=== PATIENT | female | born 1985 | race Caucasian/White ===

== ENCOUNTER 2017-11-15 12:43 | Emergency (ER) | payer OTHER, SELFPAY ==
[2017-11-15 12:52] VITALS: BP 136/90; PULSE 99; RESP 20; TEMP 36.6; O2SAT 99; BMI 28.3
--- NOTE | 2017-11-15 13:12 | HMH.EDUTC ---
[facility] [place] Disposition Clinical Impression: Right sided sciatica Disposition: Home, Self-Care Condition on Discharge: Good Additional Instructions: Stretching. Ice. Prescriptions: Cyclobenzaprine HCl [Cyclobenzaprine 10mg Tab] 10 mg PO QPMWM 10 Days #10 tab methylPREDNISolone [Medrol] 4 mg PO DIRECTED 6 Days #1 tab.ds.pk Forms: Work/School Release Time of Disposition: 13:18 Medical Decision Making - Ryder Inquiry Pt receiving controlled substance: No Vital Signs: 11/15/17 12:52 Temperature 97.8 F Temperature Source Temporal Artery Scan Pulse Rate [Brachial] 99 H Respiratory Rate 20 Blood Pressure [Right Arm] 136/90 Blood Pressure Mean [Right Arm] 105 Blood Pressure Position [Right Arm] Sitting 02 Sat by Pulse Oximetry 99 [facility] [place] HPI - General Stated complaint: Pain in lower back Time Seen by Provider: 11/15/17 12:50 Mode of Arrival: Ambulatory Source of Information: Patient Limitations: No Limitations Description of Symptoms (Recalled from Triage Doc. by RN): LOWER RT SIDE BACK PAIN THAT BEGAN AT WORK YESTERDAY. DESCRIBES IT BURNING. HEENT Symptoms (Recalled from RN notes): No Resp Symptoms (Recalled from RN notes): No Skin Symptoms (Recalled from RN notes): No MS Symptoms (Recalled from RN notes): Yes Functional Status (Recalled from RN notes): NA - History of Present Illness Provider Complaint: Patient has right lower back pain since yesterday afternoon at work. Pain radiates into her right buttock. She cannot find a comfortable position. She does not recall any injury. Pain is burning. Does not extend further than her buttock. No numbness. No bowel or bladder incontinence. Onset (ago): day(s) (1) Location: back Radiation: back Quality: burning Consistency: constant Relieving factors: immobilization Exacerbating factors: movement Associated symptoms: denies other symptoms Treatments prior to arrival: NSAID - Related Data Previous Rx's Medication Instructions Recorded Cyclobenzaprine HCl 10 mg PO QPMWM 10 Days #10 tab 11/15/17 [Cyclobenzaprine 10mg Tab] methylPREDNISolone [Medrol] 4 mg PO DIRECTED 6 Days #1 11/15/17 tab.ds.pk Allergies Allergy/AdvReac Type Severity Reaction Status Date / Time No Known Drug Allergies Allergy Unknown Verified 11/15/17 12:54 [NKDA] - Worker's Comp Is this a Worker's Comp case?: No [facility] History I have reviewed the patient's past medical history: Yes - Social History Smoking Status: Current every day smoker Tobacco Type: cigarettes Alcohol Intake: never - Psychiatric History Expresses thoughts of harming self/others: None Suicide Plan Description: No Plan ROS Obtained: Yes All systems reviewed & no additional complaints - Musculoskeletal Musculoskeletal: Reports back pain, Reports numbness, Reports stiffness, Reports tingling Physical Exam - General General appearance: alert, in no apparent distress - Head Head exam: atraumatic, normocephalic - Eye Eye exam: Present: normal appearance - Chest Chest inspection: Present: normal inspection - Respiratory Respiratory exam: Present: normal lung sounds bilaterally, respiratory distress - Cardiovascular Cardiovascular exam: Present: regular rate, normal rhythm - Extremities Exam Extremities exam: Present: normal inspection, full ROM - Back Exam Back exam: Present: normal inspection, sciatic notch tenderness (R). Absent: vertebral tenderness - Neurological Exam Neurological exam: Present: alert, oriented X3 - Psychiatric Psychiatric exam: Present: normal affect, normal mood - Skin Skin exam: Present: warm, dry, intact
--- NOTE | 2017-11-15 13:15 | ED_ITS ---
[facility] [place] Disposition Clinical Impression: Right sided sciatica Disposition: Home, Self-Care Condition on Discharge: Good Additional Instructions: Stretching. Ice. Prescriptions: Cyclobenzaprine HCl [Cyclobenzaprine 10mg Tab] 10 mg PO QPMWM 10 Days #10 tab methylPREDNISolone [Medrol] 4 mg PO DIRECTED 6 Days #1 tab.ds.pk Forms: Work/School Release Time of Disposition: 13:18 Medical Decision Making - Ryder Inquiry Pt receiving controlled substance: No Vital Signs: 11/15/17 12:52 Temperature 97.8 F Temperature Source Temporal Artery Scan Pulse Rate [Brachial] 99 H Respiratory Rate 20 Blood Pressure [Right Arm] 136/90 Blood Pressure Mean [Right Arm] 105 Blood Pressure Position [Right Arm] Sitting 02 Sat by Pulse Oximetry 99 [facility] [place] HPI - General Stated complaint: Pain in lower back Time Seen by Provider: 11/15/17 12:50 Mode of Arrival: Ambulatory Source of Information: Patient Limitations: No Limitations Description of Symptoms (Recalled from Triage Doc. by RN): LOWER RT SIDE BACK PAIN THAT BEGAN AT WORK YESTERDAY. DESCRIBES IT BURNING. HEENT Symptoms (Recalled from RN notes): No Resp Symptoms (Recalled from RN notes): No Skin Symptoms (Recalled from RN notes): No MS Symptoms (Recalled from RN notes): Yes Functional Status (Recalled from RN notes): NA - History of Present Illness Provider Complaint: Patient has right lower back pain since yesterday afternoon at work. Pain radiates into her right buttock. She cannot find a comfortable position. She does not recall any injury. Pain is burning. Does not extend further than her buttock. No numbness. No bowel or bladder incontinence. Onset (ago): day(s) (1) Location: back Radiation: back Quality: burning Consistency: constant Relieving factors: immobilization Exacerbating factors: movement Associated symptoms: denies other symptoms Treatments prior to arrival: NSAID - Related Data Previous Rx's Medication Instructions Recorded Cyclobenzaprine HCl 10 mg PO QPMWM 10 Days #10 tab 11/15/17 [Cyclobenzaprine 10mg Tab] methylPREDNISolone [Medrol] 4 mg PO DIRECTED 6 Days #1 11/15/17 tab.ds.pk Allergies Allergy/AdvReac Type Severity Reaction Status Date / Time No Known Drug Allergies Allergy Unknown Verified 11/15/17 12:54 [NKDA] - Worker's Comp Is this a Worker's Comp case?: No [facility] History I have reviewed the patient's past medical history: Yes - Social History Smoking Status: Current every day smoker Tobacco Type: cigarettes Alcohol Intake: never - Psychiatric History Expresses thoughts of harming self/others: None Suicide Plan Description: No Plan ROS Obtained: Yes All systems reviewed & no additional complaints - Musculoskeletal Musculoskeletal: Reports back pain, Reports numbness, Reports stiffness, Reports tingling Physical Exam - General General appearance: alert, in no apparent distress - Head Head exam: atraumatic, normocephalic - Eye Eye exam: Present: normal appearance - Chest Chest inspection: Present: normal inspection - Respiratory Respiratory exam: Present: normal lung sounds bilaterally, respiratory distress - Cardiovascular Cardiovascular exam: Present: regular rate, normal rhythm - Extremities Exam Extremities exam: Present: normal i
[2017-11-15 13:23] VITALS: BP 136/90; PULSE 99; RESP 20; TEMP 36.6; O2SAT 99
== END 2017-11-15 13:25 | disposition home or self-care (01) ==
PROVIDERS: Emergency Provider Physician Assistant
DX: M54.31 Sciatica, right side (principal)
CPT/HCPCS: 99201

== ENCOUNTER 2024-10-06 14:37 | Emergency (ER) | payer BC, SELFPAY ==
[2024-10-06 15:01] VITALS: BP 165/100; PULSE 79; RESP 18; TEMP 36.6; O2SAT 99; BMI 31.4
--- NOTE | 2024-10-06 15:30 | XR_ITS ---
PROCEDURE INFORMATION: Exam: XR Left Hip Exam date and time: 10/06/2024 3:45 PM Age: 39 years old Clinical indication: Hip pain; Left hip; Additional info: Fall on ice, knee pain TECHNIQUE: Imaging protocol: Radiologic exam of the left hip. Views: 2 or 3 views hip with pelvis when performed. COMPARISON: ABDPELWO CT abdomen pelvis wo con 03/20/2018 10:14 PM FINDINGS: Bones/joints: Unremarkable. No acute fracture. Soft tissues: Unremarkable. IMPRESSION: No acute findings.
--- NOTE | 2024-10-06 15:30 | XR_ITS ---
PROCEDURE INFORMATION: Exam: XR Left Femur Exam date and time: 10/06/2024 3:42 PM Age: 39 years old Clinical indication: Pain; Thigh; Left; Additional info: Fall on ice, knee pain TECHNIQUE: Imaging protocol: Radiologic exam of the left femur. Views: 2 views. COMPARISON: CR XR KNEE LT 3V 10/06/2024 3:40 PM FINDINGS: Bones/joints: Unremarkable. No acute fracture. Soft tissues: Unremarkable. IMPRESSION: No acute findings.
--- NOTE | 2024-10-06 15:30 | XR_ITS ---
PROCEDURE INFORMATION: Exam: XR Left Tibia and Fibula Exam date and time: 10/06/2024 3:43 PM Age: 39 years old Clinical indication: Pain; Lower leg; Left; Additional info: Fall on ice, knee pain TECHNIQUE: Imaging protocol: Radiologic exam of the left tibia and fibula. Views: 2 views. COMPARISON: CR XR KNEE LT 3V 10/06/2024 3:40 PM FINDINGS: Bones/joints: Normal. Soft tissues: Normal. IMPRESSION: No acute findings.
--- NOTE | 2024-10-06 15:30 | XR_ITS ---
PROCEDURE INFORMATION: Exam: XR Left Knee Exam date and time: 10/06/2024 3:40 PM Age: 39 years old Clinical indication: Pain; Knee; Left; Additional info: Fall on ice, knee pain TECHNIQUE: Imaging protocol: Radiologic exam of the left knee. Views: 3 views. COMPARISON: CR Knee L 01/13/2019 11:04 PM FINDINGS: Bones/joints: No acute fracture. Soft tissues: Prepatellar soft tissue swelling. IMPRESSION: 1. No evidence for acute fracture. 2. Prepatellar soft tissue swelling.
--- NOTE | 2024-10-06 15:31 | HMH.EDGENADL ---
Discharge Plan Disposition Patient Disposition: Home, Self-Care Condition: Good Prescriptions Prescriptions: New methocarbamol 750 mg tablet 750 mg PO Q8H PRN (Reason: pain) Qty: 20 0RF ondansetron 4 mg tablet,disintegrating 4 mg PO Q8H PRN (Reason: nausea and vomiting) 4 Days Qty: 12 0RF No Action prednisone 20 MG tablet 20 mg PO BID Qty: 10 0RF Referrals Follow up/Referrals: Juan Pratt DO [Staff Physician] - See instructions Michael Harvey MD [Primary Care Provider] - See instructions Activity Restrictions/Add. Instructions Additional Instructions/Restrictions: You were evaluated in the emergency department today. At this time, I do not see any acute fractures on your x-ray. Please follow-up closely with orthopedics for reassessment. Please orange picker your prescriptions and take them as needed for symptoms. Also take Tylenol and ibuprofen every 4-6 hours as needed for pain. Keep your leg elevated. Ice to reduce pain and swelling. Expect that the bruising may spread and extend down your leg as gravity pulls the blood downward. Return to the emergency department for new or worsening symptoms. Clinical Impressions Clinical Impression: Nausea, Knee pain, left, Hemarthrosis of knee, left Stand Alone Forms Stand Alone Forms: Work/School Release Instructions Patient Instructions: DI for Nausea -- Adult, DI for Knee Effusion, DI for Knee Pain Print Language Print Language: Cook Islander Discharge ED Provider: Kala Pearce General Adult HPI General Chief complaint: Fall Stated complaint: AO-10/05 am- fall, pain, swelling to L knee Time Seen by Provider: 10/06/24 15:06 Mode of Arrival: Ambulatory Source of Information: Patient Limitations: No Limitations Description of Symptoms (Recalled from ER Triage Doc. by RN): FELL ON ICE ON LEFT KNEE, SEVERE BRUISING/PAIN History of Present Illness HPI narrative: This patient is a 39-year-old female who denies significant past medical history presenting to the emergency department for evaluation with concern for left knee pain. Patient fell yesterday morning on ice, landing directly on her left knee. She felt immediate pain. She has had progressively worsening swelling and bruising to her left knee since then. She can still walk but has some pain in the left knee and left hip with ambulation. No head injury or loss of consciousness. She does not take blood thinners or aspirin. Of note, she also states that overnight she started feeling very nauseated and having epigastric discomfort. She feels like she needs to vomit but is unable to. No other concerns noted at this time. Related Data Previous Rx's ?Medication ?Instructions ?Recorded prednisone 20 mg tablet 20 mg PO BID #10 tabs 01/13/19 methocarbamol 750 mg tablet 750 mg PO Q8H PRN pain #20 tabs 10/06/24 ondansetron 4 mg disintegrating 4 mg PO Q8H PRN nausea and 10/06/24 tablet vomiting 4 days #12 tabs Allergies Allergy/AdvReac Type Severity Reaction Status Date / Time No Known Drug Allergies Allergy Unknown Verified 11/15/17 12:54 (NKDA) [facility] Disclaimer: The information contained in this section may have been updated after the patient was seen, as this information can be updated by other users. Social History Smoking Status: Current every day smoker tobacco type: cigarettes packs per day: 1 alcohol intake: never current occupational status: employed Travel in the last 8 weeks: None housing: house Have you lived/traveled outside [place] in past 30 days?: No Contact w/someone who lives/traveled outside US past 30 days?: No Exposure to someone with infectious disease in past 14 days?: No Do you have a fever (greater than 100.4 F or 38 C)?: No Have you tested positive for COVID-19: No Exposed to someone with COVID-19 in past 14 days?: No Do you have a sore throat?: No Do you have a cough?: No Do you have any weakness?: No Do you have any diarrhea?: No Are you experiencing any unusual bleeding?: No Do you have any muscle aches/pain?: No Do you have any abdominal pain?: No Are you experiencing loss of taste or smell?: No Other Medical History Have you received the Flu Vaccine for this season: No Have you received the Pneumonia Vaccine: No ROS Obtained: Yes All systems reviewed & no additional complaints except as documented Physical Exam General General appearance: alert and in no apparent distress Head Head exam: atraumatic and normocephalic Eye Eye exam: Present normal appearance, PERRL and EOMI ENT ENT exam: Present normal exam, normal oropharynx, mucous membranes moist and normal external ear exam Neck Neck exam: Present normal inspection, full ROM and trachea midline; Absent tenderness Chest Chest inspection: Present normal inspection and symmetric chest wall rise; Absent tenderness Respiratory Respiratory exam: Present normal lung sounds bilaterally; Absent respiratory distress, wheezes, stridor or accessory muscle use Cardiovascular Cardiovascular exam: Present regular rate and normal rhythm Abdominal Exam Abdominal exam: Present soft; Absent distention, tenderness or guarding Extremities Exam Extremities exam: Present tenderness, normal capillary refill, joint swelling (L knee) and other (hemarthrosis/bruising L knee with abrasion to medial kneecap. No deep laceration. All compartments soft. Neurovascularly intact distally.); Absent edema Back Exam Back exam: Present normal inspection and full ROM; Absent tenderness Neurological Exam Neurological exam: Present alert, oriented X3, CN II-XII intact and normal gait; Absent motor sensory deficit Psychiatric Psychiatric exam: Present normal affect and normal mood Skin Skin exam: Present warm and dry Medical Decision Making Medical Records Medical records reviewed: Yes I reviewed the patient's medical records. Screening: Per USPSTF and CDC recommendations, given the prevalence of disease in our region, it is our hospital?s policy to screen for HIV and viral Hepatitis for all patients aged 18 and over and those with ongoing risk factors. Ryder Inquiry Pt receiving controlled substance: No Vital Signs: 10/06/24 15:01 10/06/24 17:39 Temperature 97.9 F 97.9 F Temperature Source Oral Oral Pulse Rate 82 Pulse Rate [Left Radial] 79 Respiratory Rate 18 16 Blood Pressure 154/89 H Blood Pressure [Left Arm] 165/100 H Blood Pressure Mean [Left Arm] 121 Blood Pressure Source Automatic Cuff Blood Pressure Source [Left Arm] Automatic Cuff Blood Pressure Position Sitting Blood Pressure Position [Left Arm] Sitting 02 Sat by Pulse Oximetry 99 Oxygen Delivery Method Room Air Room Air Lab Data Lab results reviewed: Yes I reviewed the patient's lab results. Lab Results 10/06/24 16:12: SARS-CoV-2 (PCR) Not detected, Influenza A Untype (PCR) Not detected, Influenza Type B (PCR) Not detected 10/06/24 : WBC 10.3, RBC 4.62, Hgb 14.3, Hct 42.1, MCV 91.1, MCH 31.0, MCHC 34.0, RDW 12.4, Plt Count 295, MPV 10.7 H, Neut % (Auto) 62.8, Lymph % (Auto) 28.8, [place] % (Auto) 6.7, Eos % (Auto) 1.1, Baso % (Auto) 0.3, Neut # (Auto) 6.5, Lymph # (Auto) 3.0, [place] # (Auto) 0.7, Eos # (Auto) 0.1, Baso # (Auto) 0.0, Sodium 141, Potassium 3.7, Chloride 107, Carbon Dioxide 23, Anion Gap 14.7, BUN 14, Creatinine 0.90, Estimated Creat Clear 107, Estimated GFR 69, Est GFR ( Amer) 84, Glucose 81, Calcium 8.9, Total Bilirubin 0.4, AST 36, ALT 28, Alkaline Phosphatase 56, Total Protein 7.1, Albumin 4.6, Globulin 2.5, Albumin/Globulin Ratio 1.8, Lipase 153, HCV Ab TRE w/Rflx PCR Qn Negative, HIV Ag/Ab Combo Qual Negative 10/06/24 Unknown 10/06/24 Unknown Orders (Tests/Meds): ED MEDICATIONS Discontinued Medications Generic Name Dose Route Start Last Admin Trade Name Freq PRN Reason Stop Dose Admin Acetaminophen 1,000 mg 10/06/24 15:30 10/06/24 16:09 Acetaminophen 500mg Tab PO 10/06/24 15:31 1,000 mg ONCE ONE Administration Famotidine 20 mg 10/06/24 16:43 10/06/24 16:56 Famotidine 20mg/2ml Vial IV 10/06/24 16:44 20 mg ONCE ONE Administration Ketorolac Tromethamine 15 mg 10/06/24 15:30 10/06/24 16:10 Ketorolac 30mg/Ml Vial IV 10/06/24 15:31 15 mg ONCE ONE Administration Methocarbamol 500 mg 10/06/24 15:31 10/06/24 16:09 Methocarbamol 500mg Tablet PO 10/06/24 15:32 500 mg ONCE ONE Administration Ondansetron HCl 4 mg 10/06/24 15:30 10/06/24 16:09 Ondansetron 4mg/2ml Vial IV 10/06/24 15:31 4 mg ONCE ONE Administration Sodium Chloride 8 ml 10/06/24 16:43 Sodium Chloride 0.9% 10ml Vial IV 11/05/24 16:42 NEEDED PRN dilute pepcid ORDERS Category Date Time Status Femur XR left 2 views [XR femur LT 2V] Stat Exams 10/06/24 15:30 Completed Hip XR left minimum 2 views [XR hip LT 2-3V w/pelvis] Exams 10/06/24 15:30 Completed Stat Knee XR left 3 views [XR knee LT 3V] Stat Exams 10/06/24 15:30 Completed Tibia/fibula XR left 2 views [XR tibia fibula LT 2V] Exams 10/06/24 15:30 Completed Stat CBC w/Auto Diff [Complete Blood Count Auto Diff] Stat Lab 10/06/24 Completed CMP [Comprehensive Metabolic Panel] Stat Lab 10/06/24 Completed HIV Combo Routine Lab 10/06/24 Completed Hepatitis C Ab Qual. W/ RFX Routine Lab 10/06/24 Completed Lipase Stat Lab 10/06/24 Completed Rapid PCR Covid and Flu A/B Stat Lab 10/06/24 16:12 Completed Medical Decision Narrative: In summary, this patient is a 39-year-old female presenting to the Emergency Department for evaluation of left knee pain after a fall. Patient also has nausea and epigastric discomfort. Differential diagnoses considered include but are not limited to gastritis, pancreatitis, fracture, hemarthrosis, ligamentous injury, contusion. Ruling out the most morbid conditions drove assessment. It should be noted patient's history includes obesity which is not at goal therapy. This complicates all aspects of care by increasing patient's risk for morbidity. On exam, the patient has hemarthrosis to the left knee with very superficial abrasion medial to the kneecap. All compartment soft, neurovascularly intact distally. No significant appreciable ligamentous laxity. She also has epigastric discomfort and nausea but no abdominal tenderness to palpation. Workup included CBC, CMP, lipase, x-rays of the left hip through knee. Patient was given IV Toradol, Pepcid, Zofran, and oral Tylenol and Robaxin for symptomatic improvement. I independently interpreted x-ray prior to the radiologist read and noted no acute fracture. Please see their read for final interpretation. Labs were obtained that demonstrated reassuring CBC with no significant leukocytosis or anemia, reassuring chemistry with no transaminitis, elevation in lipase, or other concern. On reassessment, patient had good improvement after administration of interventions above. Abdominal exam remains benign. She remains neurovascularly intact in her extremity. At this time, I feel she is appropriate for bracing for supportive management and crutches to help with weightbearing of her left lower extremity. She is given instructions for follow-up with orthopedics and primary care as well as strict return precautions. She was discharged after all questions were answered.. Critical Care Critical Care Time Critical Care Time: No
[2024-10-06 15:55] LABS: Basophils % 0.3 % (0.1-2.0); Eosinophils # 0.1 K/mm3 (0.0-0.4); Eosinophils % 1.1 % (0.1-12.0); Hematocrit 42.1 % (37.0-47.0); Hemoglobin 14.3 g/dL (12.2-16.2); Lymphocytes % 28.8 % (10-50); Mean Corpuscular Volume 91.1 fl (81-99); Mean Platelet Volume 10.7 fl (7.4-10.4); Monocytes # 0.7 K/mm3 (0.1-1.0); Monocytes % 6.7 % (1.7-9.3); Neutrophils # 6.5 K/mm3 (1.8-7.8); Neutrophils % 62.8 % (37.0-80.0); Platelet Count 295 K/mm3 (142-424); Red Blood Count 4.62 M/mm3 (4.20-5.40); Red Cell Distribution Width 12.4 % (11.5-17.5); White Blood Count 10.3 K/mm3 (4.8-10.8)
[2024-10-06] MEDS: ONDANSETRON 4MG/2ML VIAL 4 MG IV (16:09)
[2024-10-06] MEDS: ACETAMINOPHEN 500MG TAB 1000 MG PO (16:09)
[2024-10-06] MEDS: METHOCARBAMOL 500MG TABLET 500 MG PO (16:09)
[2024-10-06 16:10] LABS: Albumin Level 4.6 g/dl (3.5-5.0); Chloride 107 mmol/L (98-107); Sodium 141 mmol/L (136-145)
[2024-10-06] MEDS: KETOROLAC 30MG/ML VIAL 15 MG IV (16:10)
[2024-10-06 16:11] LABS: Potassium 3.7 mmoL/L (3.5-5.1)
[2024-10-06 16:13] LABS: Alanine Aminotransferase 28 U/L (12-78); Albumin/Globulin Ratio 1.8 (1.1-1.8); Alkaline Phosphatase 56 U/L (38-126); Anion Gap 14.7 mEq/L (5-15); Aspartate Amino Transferase 36 U/L (14-36); Bilirubin,Total 0.4 mg/dl (0.2-1.3); Blood Urea Nitrogen 14 mg/dl (7-17); Carbon Dioxide 23 mmol/L (22.0-30.0); Creatinine Clearance Estimated 107 mL/min (50-200); Estimated Glomerular Filt Rate 69 ml/min (>60); GFR (African American) 84 ML/MIN (>60); Globulin 2.5 g/dL (1.3-3.2); Lipase 153 U/L (23-300); Total Protein,Serum 7.1 g/dl (6.3-8.2)
[2024-10-06 16:14] LABS: Calcium 8.9 mg/dl (8.4-10.2); Glucose 81 mg/dl (74-100)
[2024-10-06 16:20] LABS: Coronavirus 19, PCR Not Detected (NotDetected); Influenza A, PCR Not Detected (NotDetected); Influenza B, PCR Not Detected (NotDetected)
[2024-10-06] MEDS: FAMOTIDINE 20MG/2ML VIAL 20 MG IV (16:56)
[2024-10-06 17:33] LABS: HIV Combo NEGATIVE (Negative)
[2024-10-06 17:39] VITALS: BP 154/89; PULSE 82; RESP 16; TEMP 36.6; O2SAT 99
[2024-10-06 17:42] LABS: Hepatitis C Ab Qual. W/ RFX NEGATIVE (Negative)
== END 2024-10-06 17:38 | disposition home or self-care (01) ==
PROVIDERS: Emergency Provider Emergency Medicine; PCP Family Medicine
DX: M25.062 Hemarthrosis, left knee (principal); R11.0 Nausea; M25.562 Pain in left knee; M25.552 Pain in left hip; R10.13 Epigastric pain; F17.210 Nicotine dependence, cigarettes, uncomplicated
CPT/HCPCS: 73502; 73552; 73562; 73590; 80053; 83690; 85025; 86803; 87389; 87636; 96374; 96375; 99283; J1885; J2405; S0028